=== PATIENT | male | born 1950 | race Caucasian/White ===

== ENCOUNTER → 2023-11-01 | Outpatient (REF) | payer MEDICARE ==
[~2023-11-01] MED LIST: CALCIUM PO; COMPLEX B-1001 EACH PO; DIOVAN PO; FEROSUL325 MG PO; FLOMAX0.4 MG PO; GABAPENTIN100 MG PO; LISINOPRIL-HCT1 EACH PO; MAGNESIUM PO; METFORMIN HCL500 MG PO; METFORMIN PO; NAPROXEN250 MG PO; PROBIOTIC250 MG PO; SIMVASTATIN PO; ULTRAM 50MG50 MG PO; VALSARTAN-HCTZ1 EACH PO; VITAMIN A8000 UNIT PO; VITAMIN C100 MG PO; VITAMIN D3 COM1 EACH PO; ZINC CHELATED50 M2 PO; probiotic PO
== END ==
LOC: RAD 09:14
PROVIDERS: ATTEND Plastic Surgery
DX: Z01.818 Encounter for other preprocedural examination (principal); M16.11 Unilateral primary osteoarthritis, right hip
CPT/HCPCS: 71046

== ENCOUNTER 2023-11-11 19:26 | Emergency (ER) | payer MEDICARE ==
[~2023-11-11] VITALS: Ht 175.3 cm; Wt 88.5 kg
[2023-11-11] MEDS: SODIUM CHLORIDE 0.9% 1000ML 2,000 ML IV STA (19:50)
[2023-11-11 19:57] LABS: BASOPHILS % 0.4 % (0.0-1.0); EOSINOPHILS # (AUTO) 0.1 (0.0-0.4); EOSINOPHILS % 0.6 % (0.0-6.0); HEMATOCRIT 32.6 % (38.2-49.6); HEMOGLOBIN 10.5 g/dL (14.0-18.0); LYMPHOCYTES # (AUTO) 1.5 (1.0-3.2); LYMPHOCYTES % 17.9 % (18.0-39.1); MEAN CORPUSCULAR HEMOGLOBIN 30.2 pg (28-32); MEAN CORPUSCULAR HGB CONC 32.2 g/dL (31-35); MEAN CORPUSCULAR VOLUME 93.7 fL (81-99); MONOCYTES # (AUTO) 0.6 (0.2-0.8); MONOCYTES % 6.8 % (4.4-11.3); NEUTROPHILS # (AUTO) 6.2 (2.1-6.9); NEUTROPHILS % 74.1 % (38.7-80.0); PLATELET COUNT 227 x10e3/uL (140-360); RED BLOOD COUNT 3.48 x10e6/uL (4.3-5.7); RED CELL DISTRIBUTION WIDTH 12.8 % (11.7-14.4); WHITE BLOOD COUNT 8.34 x10e3/uL (4.8-10.8)
[2023-11-11 20:16] LABS: ALANINE AMINOTRANSFERASE 13 IU/L (0-55); ALBUMIN 3.9 g/dL (3.5-5.0); ALBUMIN/GLOBULIN RATIO 1.3 (0.8-2.0); ALKALINE PHOSPHATASE 65 IU/L (40-150); ANION GAP 15.3 mmol/L (8-16); BILIRUBIN,TOTAL 0.5 mg/dL (0.2-1.2); BLOOD UREA NITROGEN 16 mg/dL (7-26); BUN/CREATININE RATIO 16 (6-25); CARBON DIOXIDE 21 mmol/L (22-29); CHLORIDE 105 mmol/L (98-107); CREATINE KINASE 115 IU/L (30-200); EST GLOMERULAR FILTRATION RATE 79 ML/MIN (>=60); GLUCOSE 102 mg/dL (74-118); SODIUM 138 mmol/L (136-145); TOTAL PROTEIN 6.8 g/dL (6.5-8.1)
[2023-11-11 20:18] LABS: POTASSIUM 3.3 mmol/L (3.5-5.1)
[2023-11-11 20:22] LABS: TROPONIN I < 0.001 ng/mL (0-0.300)
[2023-11-11 21:31] VITALS: PULSE 79; RESP 18; TEMP 97.9; O2SAT 100
[2023-11-18] MEDS ORDERED: ASPIRIN81 MG PO (13:52)
== END 2023-11-11 22:20 | disposition home or self-care (01) ==
LOC: ER 19:36
DX: R55 Syncope and collapse (principal); I10 Essential (primary) hypertension; E11.9 Type 2 diabetes mellitus without complications; Z11.52 Encounter for screening for COVID-19; R94.31 Abnormal electrocardiogram [ECG] [EKG]
CPT/HCPCS: 36415; 70450; 71045; 72125; 80053; 82550; 83690; 83880; 84484; 85025; 93005; 99284; J7030; U0002

== ENCOUNTER → 2023-11-12 | Day surgery (SDC) | payer MEDICARE ==
[2023-11-07 10:33] LABS: BASOPHILS % 0.6 % (0.0-1.0); EOSINOPHILS # (AUTO) 0.1 (0.0-0.4); HEMATOCRIT 33.5 % (38.2-49.6); HEMOGLOBIN 10.8 g/dL (14.0-18.0); LYMPHOCYTES # (AUTO) 1.7 (1.0-3.2); LYMPHOCYTES % 33.8 % (18.0-39.1); MEAN CORPUSCULAR HEMOGLOBIN 29.9 pg (28-32); MEAN CORPUSCULAR HGB CONC 32.2 g/dL (31-35); MEAN CORPUSCULAR VOLUME 92.8 fL (81-99); MONOCYTES # (AUTO) 0.4 (0.2-0.8); MONOCYTES % 8.9 % (4.4-11.3); NEUTROPHILS # (AUTO) 2.8 (2.1-6.9); NEUTROPHILS % 55.5 % (38.7-80.0); PLATELET COUNT 237 x10e3/uL (140-360); RED BLOOD COUNT 3.61 x10e6/uL (4.3-5.7); RED CELL DISTRIBUTION WIDTH 12.6 % (11.7-14.4); WHITE BLOOD COUNT 4.97 x10e3/uL (4.8-10.8)
[~2023-11-12] MED LIST changes: +ASPIRIN81 MG PO; +DEXTROSE 5% 250ML 250 ML IV ONE
[2023-11-12 14:50] VITALS: TEMP 97
[2023-11-12 15:10] VITALS: BP 134/75; PULSE 78; RESP 18; O2SAT 99
== END | disposition home or self-care (01) ==
LOC: OR 12:21
PROVIDERS: ATTEND Internal Medicine Gastroenterology
DX: Z09 Encounter for follow-up examination after completed treatment for conditions other than malignant neoplasm (principal); D12.4 Benign neoplasm of descending colon; K63.89 Other specified diseases of intestine; K64.8 Other hemorrhoids; Z71.3 Dietary counseling and surveillance; I10 Essential (primary) hypertension; Z71.89 Other specified counseling; E11.9 Type 2 diabetes mellitus without complications; N40.0 Benign prostatic hyperplasia without lower urinary tract symptoms; Z01.810 Encounter for preprocedural cardiovascular examination; Z01.812 Encounter for preprocedural laboratory examination; Z79.84 Long term (current) use of oral hypoglycemic drugs; Z79.899 Other long term (current) drug therapy; Z68.27 Body mass index [BMI] 27.0-27.9, adult; Z87.891 Personal history of nicotine dependence
CPT/HCPCS: 36415; 45385; 82948; 85025; 88305; 93005

== ENCOUNTER → 2023-11-18 | Day surgery (SDC) | payer MEDICARE ==
[2023-11-15 10:10] LABS: BASOPHILS % 0.3 % (0.0-1.0); EOSINOPHILS # (AUTO) 0.1 (0.0-0.4); EOSINOPHILS % 1.2 % (0.0-6.0); HEMATOCRIT 34.9 % (38.2-49.6); HEMOGLOBIN 11.2 g/dL (14.0-18.0); LYMPHOCYTES # (AUTO) 1.5 (1.0-3.2); LYMPHOCYTES % 25.7 % (18.0-39.1); MEAN CORPUSCULAR HGB CONC 32.1 g/dL (31-35); MEAN CORPUSCULAR VOLUME 93.6 fL (81-99); MONOCYTES # (AUTO) 0.5 (0.2-0.8); MONOCYTES % 8.2 % (4.4-11.3); NEUTROPHILS # (AUTO) 3.8 (2.1-6.9); NEUTROPHILS % 64.4 % (38.7-80.0); PLATELET COUNT 255 x10e3/uL (140-360); RED BLOOD COUNT 3.73 x10e6/uL (4.3-5.7); RED CELL DISTRIBUTION WIDTH 12.6 % (11.7-14.4); WHITE BLOOD COUNT 5.96 x10e3/uL (4.8-10.8)
[2023-11-15 10:39] LABS: ANION GAP 13.8 mmol/L (8-16); CREATININE, SERUM 0.97 mg/dL (0.72-1.25); POTASSIUM 3.8 mmol/L (3.5-5.1)
[~2023-11-18] MED LIST changes: +ACETAMINOPHEN 1000 MG/100 ML IV ONE; +ACETAMINOPHEN 1000 MG/100 ML IV PRN; +ASPIRIN 325 MG TAB PO SCH; +CELECOXIB 100 MG CAP PO SCH; -DEXTROSE 5% 250ML 250 ML IV ONE; +DIPHENHYDRAMINE HCL INJ 50 MG/ML VIAL IV PRN; +DOCUSATE SODIUM 100 MG CAP PO PRN; +EPINEPHRINE HCL 1:1000 1ML 1 MG/ML AMP ONE; +HYDROCODONE/APAP 5MG-325MG TAB PO PRN; +HYDROCODONE/APAP 7.5MG-325MG 1 EA TAB PO PRN; +KETAMINE 50MG/5ML SYR ONE; +LIDOCAINE HCL 2% LOCAL INJ 5 ML SDV VIAL INJ ONE; +METOCLOPRAMIDE HCL 10 MG/2ML VIAL ONE; +MIDAZOLAM HCL 2 MG/2 ML VIAL ONE; +ONDANSETRON HCL INJ 2MG/ML 2ML 2 MG/ML VIAL IV PRN; +ONDANSETRON HCL INJ 2MG/ML 2ML 2 MG/ML VIAL ONE; +PROPOFOL IV EMULSION 10 MG/ML 20 ML VIAL ONE; +ROPIVACAINE 0.5% 5 MG/ML 30 ML SDV ONE; +ROPIVACAINE/EPI/CLONIDINE/KET 50 ML SYRINGE INJ ONE; +SEVOFLURANE INHAL SOLN 250 ML PEN BTL ONE; +SODIUM CHLORIDE 0.9% 1000ML 1,000 ML IV SCH; +SODIUM CHLORIDE 0.9% 500ML 500 ML ONE; +TRANEXAMIC ACID 1,000 MG/10 ML ML ONE; +TRANEXAMIC ACID 20 ML ONE; +Vancomycin IV 500 MG ONE
[2023-11-18] MEDS: DEXAMETHASONE SOD PHOS 10 MG/1 ML VIAL ONE (05:51)
[2023-11-18] MEDS: CELECOXIB 200 MG CAP ONE (05:51)
[2023-11-18] MEDS: CEFAZOLIN SODIUM 2 GM ONE (05:51)
[2023-11-18] MEDS: GABAPENTIN 300 MG CAP ONE (05:51)
[2023-11-18] MEDS: LACTATED RINGER'S 1,000 ML ONE (05:52)
[2023-11-18 13:25] VITALS: BP 143/70; PULSE 76; RESP 15; O2SAT 97
== END | disposition home health service (06) ==
LOC: OR 05:37
PROVIDERS: ATTEND Specialist
DX: M16.12 Unilateral primary osteoarthritis, left hip (principal); M06.9 Rheumatoid arthritis, unspecified; G89.29 Other chronic pain; E11.9 Type 2 diabetes mellitus without complications; I10 Essential (primary) hypertension; N40.0 Benign prostatic hyperplasia without lower urinary tract symptoms; Z01.812 Encounter for preprocedural laboratory examination; Z79.84 Long term (current) use of oral hypoglycemic drugs; Z79.82 Long term (current) use of aspirin; Z79.899 Other long term (current) drug therapy; Z96.641 Presence of right artificial hip joint
CPT/HCPCS: 27130; 36415; 72170; 80048; 85025; 86850; 86900; 97110; 97116; 97161; 97530; C1713 ×3; C1776 ×2; J0131; J0171; J1100; J2001; J2250; J2405; J2704; J2765; J2795; J3370; J7040; J7121

== ENCOUNTER 2023-12-25 11:00 | Outpatient (RCR) | payer MEDICARE ==
[~2023-12-25 11:00] MED LIST changes: -ACETAMINOPHEN 1000 MG/100 ML IV ONE; -ACETAMINOPHEN 1000 MG/100 ML IV PRN; -ASPIRIN 325 MG TAB PO SCH; -CELECOXIB 100 MG CAP PO SCH; -DIPHENHYDRAMINE HCL INJ 50 MG/ML VIAL IV PRN; -DOCUSATE SODIUM 100 MG CAP PO PRN; -EPINEPHRINE HCL 1:1000 1ML 1 MG/ML AMP ONE; -HYDROCODONE/APAP 5MG-325MG TAB PO PRN; -HYDROCODONE/APAP 7.5MG-325MG 1 EA TAB PO PRN; -KETAMINE 50MG/5ML SYR ONE; -LIDOCAINE HCL 2% LOCAL INJ 5 ML SDV VIAL INJ ONE; -METOCLOPRAMIDE HCL 10 MG/2ML VIAL ONE; -MIDAZOLAM HCL 2 MG/2 ML VIAL ONE; -ONDANSETRON HCL INJ 2MG/ML 2ML 2 MG/ML VIAL IV PRN; -ONDANSETRON HCL INJ 2MG/ML 2ML 2 MG/ML VIAL ONE; -PROPOFOL IV EMULSION 10 MG/ML 20 ML VIAL ONE; -ROPIVACAINE 0.5% 5 MG/ML 30 ML SDV ONE; -ROPIVACAINE/EPI/CLONIDINE/KET 50 ML SYRINGE INJ ONE; -SEVOFLURANE INHAL SOLN 250 ML PEN BTL ONE; -SODIUM CHLORIDE 0.9% 1000ML 1,000 ML IV SCH; -SODIUM CHLORIDE 0.9% 500ML 500 ML ONE; -TRANEXAMIC ACID 1,000 MG/10 ML ML ONE; -TRANEXAMIC ACID 20 ML ONE; -Vancomycin IV 500 MG ONE
== END 2023-12-26 ==
LOC: PT 11:00
PROVIDERS: ATTEND Physician Assistant
DX: Z47.1 Aftercare following joint replacement surgery (principal); Z96.642 Presence of left artificial hip joint

== ENCOUNTER 2024-01-02 09:00 | Outpatient (RCR) | payer MEDICARE | END 2024-01-25 | LOC: PT 09:00 | PROVIDERS: ATTEND Physician Assistant | DX: Z47.1 Aftercare following joint replacement surgery (principal); Z96.642 Presence of left artificial hip joint ==